=== PATIENT | female | born 1955 | race Caucasian/White ===

== ENCOUNTER 2017-05-27 14:26 | Emergency (ER) | payer MEDICARE ==
[~2017-05-27] VITALS: Ht 154.9 cm; Wt 72.7 kg
[~2017-05-27 14:26] MED LIST: LISI-167 PO; METF500T4 PO
[2017-05-27 14:36] VITALS: BP 151/94
[2017-05-27] MEDS ORDERED: HYDROcodone/APAP 5/325 TABLET ONE (15:27)
[2017-05-27] MEDS ORDERED: HYDROcodone/APAP 5/325 TABLET PO PRN (15:30)
[2017-05-27] MEDS ORDERED: ACETAMINOPHEN 325 MG TABLET ONE (15:59)
[2017-05-27] MEDS ORDERED: ACETAMINOPHEN 325 MG TABLET PO ONE (16:00)
== END 2017-05-27 16:51 | disposition home or self-care (01) ==
LOC: ED 16:15
DX: S43.421A Sprain of right rotator cuff capsule, initial encounter (principal); S39.012A Strain of muscle, fascia and tendon of lower back, initial encounter; S70.01XA Contusion of right hip, initial encounter; S40.022A Contusion of left upper arm, initial encounter; I10 Essential (primary) hypertension; E11.9 Type 2 diabetes mellitus without complications; Z88.8 Allergy status to other drugs, medicaments and biological substances; W01.0XXA Fall on same level from slipping, tripping and stumbling without subsequent striking against object, initial encounter; Y93.89 Activity, other specified; Y92.098 Other place in other non-institutional residence as the place of occurrence of the external cause; Y99.8 Other external cause status
CPT/HCPCS: 72072; 72110; 99284